=== PATIENT | female | born 1940 | race Caucasian/White ===

== ENCOUNTER 2017-09-19 13:00 | Inpatient (IN) | payer MEDICARE ==
[~2017-09-19] VITALS: Ht 162.6 cm; Wt 94.4 kg
[~2017-09-19 13:00] MED LIST: ALLO100T PO; ASPI1TAB57 PO; METO50TA PO; SIMV40TA PO
[2017-09-21] MEDS ORDERED: LISI-515 PO (13:12)
[2017-09-21] MEDS ORDERED: COEN100T PO (13:12)
[2017-09-21] MEDS ORDERED: ALPH600C PO (13:15)
[2017-09-21] MEDS ORDERED: VITATAB11 PO (13:15)
[2017-09-21] MEDS ORDERED: FISHCAP4 PO (13:15)
[2017-09-21] MEDS ORDERED: MULT-65 PO (13:15)
[2017-09-21] MEDS ORDERED: VITA2000 PO (13:15)
[2017-09-26] MEDS ORDERED: LACTATED RINGER'S 1000 ML IV PRN (10:15)
[2017-09-26] MEDS ORDERED: POVIDONE IODINE 5% (ANTISEPSIS KIT) 4 APPLICATIONS EACH NARE PRN (10:15)
[2017-09-26] MEDS ORDERED: ALVIMOPAN 12 MG CAPSULE - On Call PO SCH (10:15)
[2017-09-26] MEDS ORDERED: METOPROLOL TARTRATE 25 MG TAB PO PRN (10:15)
[2017-09-26] MEDS ORDERED: CHLORHEXIDINE GLUCONATE 2 % 1 PACK (2 CLOTHS) TOPICAL PRN (10:15)
[2017-09-26] MEDS ORDERED: INSULIN HUMAN REGULAR 1,000 UNITS/10 ML VIAL SQ PRN (10:15)
[2017-09-26] MEDS ORDERED: SODIUM CHLORID 0.9% 500 ML IV PRN (10:15)
[2017-09-26] MEDS ORDERED: ACETAMINOPHEN 1000 MG/100 ML 100 ML IV ONE (10:16)
[2017-09-26] MEDS ORDERED: metroNIDAZOLE 500 MG INJ 100 ML IV ONE (10:16)
[2017-09-26] MEDS ORDERED: ceFAZolin 2 GM PREMIX 50 ML ONE (10:16)
[2017-09-26] MEDS ORDERED: metroNIDAZOLE 500 MG INJ 100 ML IV SCH (10:30)
[2017-09-26] MEDS ORDERED: ceFAZolin 2 GM PREMIX 50 ML IV SCH (10:30)
[2017-09-26] MEDS ORDERED: ACETAMINOPHEN 1000 MG/100 ML 100 ML IV SCH (10:30)
[2017-09-26] MEDS ORDERED: BUPIVACAINE/EPINEPHRINE 0.5% PF 10 ML VIAL ONE (11:52)
[2017-09-26] MEDS ORDERED: GLYCOPYRROLATE 1 MG/5 ML SYRINGE IV PUSH ONE (12:00)
[2017-09-26] MEDS ORDERED: NEOSTIGMINE 5 MG/5 ML SYRINGE IV PUSH ONE (12:00)
[2017-09-26] MEDS ORDERED: METOPROLOL TARTRATE 5 MG/5 ML VIAL IV PUSH ONE (12:00)
[2017-09-26] MEDS ORDERED: LACTATED RINGER'S 1000 ML INJ 3,000 ML IV ONE (12:00)
[2017-09-26] MEDS ORDERED: ONDANSETRON HCL 4 MG/2 ML VIAL IV PUSH ONE (12:00)
[2017-09-26] MEDS ORDERED: ePHEDrine/NS 25 MG/5 ML SYRINGE IV ONE (12:00)
[2017-09-26] MEDS ORDERED: LIDOCAINE HCL 1% PF 5 ML SYRINGE OTHER ONE (12:00)
[2017-09-26] MEDS ORDERED: ceFAZolin INJ 1,000 MG VIAL IV ONE ×2 (12:00→17:25)
[2017-09-26] MEDS ORDERED: hydrALAZINE HCL 20 MG/ML VIAL IV ONE (12:00)
[2017-09-26] MEDS ORDERED: DEXAMETHASONE SOD PHOS 4 MG/ML VIAL IV ONE (12:00)
[2017-09-26] MEDS ORDERED: PROPOFOL 200 MG/20 ML AMP IV ONE (12:00)
[2017-09-26] MEDS ORDERED: ROCURONIUM INJ 50 MG/5 ML SYRINGE IV PUSH ONE (12:00)
[2017-09-26] MEDS ORDERED: BUPIVACAINE LIPOSOME PF 1.3% 20 ML VIAL ONE (12:05)
--- NOTE | 2017-09-26 14:42 | GIPROC ---
[facility] [address] [facility]. [facility] [place], [address] COLONOSCOPY PROCEDURE REPORT EXAM DATE: 09/26/2017 PATIENT NAME: Viry Lea MR #: [id number] BIRTHDATE: 1940 ENDOSCOPIST: Omar Feliz MD ORDER #: [id number] FOOD BROKER: Suyapa Staples STATUS: inpatient INDICATIONS: The patient is a 77 yr old female here for a colonoscopy due to colonic adenocarcinoma PROCEDURE PERFORMED: Colonoscopy, diagnostic MEDICATIONS: Per Anesthesia and None. PREP QUALITY: suboptimal ESTIMATED BLOOD LOSS: None CONSENT: The patient understands the risks and benefits of the procedure and understands that these risks include, but are not limited to: sedation, allergic reaction, infection, perforation and/or bleeding. Alternative means of evaluation and treatment include, among others: physical exam, x-rays, and/or surgical intervention. The patient elects to proceed with this endoscopic procedure. medical equipment was checked for proper function. Hand hygiene and appropriate measures for infection prevention was taken. After the risks, benefits and alternatives of the procedure were thoroughly explained, Informed consent was verified, confirmed and timeout was successfully executed by the treatment team. A digital exam revealed internal hemorrhoids The Pentax [id number] and New [id number] (Std Gastro) endoscope was introduced through the anus and advanced to the sigmoid colon. The instrument was then slowly withdrawn as the colon was fully examined. COLON FINDINGS: A sessile polyp measuring 3 cm in size was found in the sigmoid colon. Retroflexed views revealed internal hemorrhoids The scope was then completely withdrawn from the patient and the procedure terminated. ADVERSE EVENTS: There were no complications. IMPRESSIONS: 1. A sessile polyp measuring 3 cm in size was found in the sigmoid colon 2. Retroflexed views revealed internal hemorrhoids 3. Revealed internal hemorrhoids RECOMMENDATIONS: Introp colonoscopy with Dr Wood to locate the polyp RECALL: Return 1 year Colonoscopy Omar Feliz MD eSigned: Omar Feliz MD 09/26/2017 2:41 PM cc:
[2017-09-26] MEDS ORDERED: GLUCAGON 1 MG/ML VIAL ONE (15:53)
[2017-09-26] MEDS ORDERED: ONDANSETRON HCL 4 MG/2 ML VIAL IV PUSH PRN (18:30)
[2017-09-26] MEDS ORDERED: diphenhydrAMINE HCL 50 MG/ML VIAL IV PUSH PRN (18:30)
[2017-09-26] MEDS ORDERED: NALOXONE HCL 0.4 MG/ML AMP IV PUSH PRN ×2 (18:30)
[2017-09-26] MEDS ORDERED: Post-op Orders (for Pharmacy) XX ONE (18:30)
[2017-09-26] MEDS ORDERED: SODIUM CHLORIDE 0.9% FLUSH 10 ML FLUSH IV FLUSH PRN (18:30)
[2017-09-26] MEDS ORDERED: PROPOFOL 1000 MG/100 ML INJ 100 ML ONE (19:03)
[2017-09-26] MEDS ORDERED: SUGAMMADEX SODIUM 200 MG/2 ML VIAL IV PUSH ONE (19:21)
[2017-09-26] MEDS ORDERED: MIDAZOLAM HCL 2 MG/2 ML VIAL ONE (19:22)
[2017-09-26] MEDS ORDERED: DO NOT ADM ANY ANTICOAGULANT DRUGS PRN (19:30)
[2017-09-26 19:46] VITALS: O2SAT 96
[2017-09-26 19:55] VITALS: O2SAT 98
[2017-09-26] MEDS: SODIUM CHLOR 0.9% 1000 ML INJ 1,000 ML IV SCH (20:00)
[2017-09-26] MEDS ORDERED: HYDROmorphone HCL PCA 6 MG/30 ML IV SCH (20:00)
[2017-09-26] MEDS: ACETAMINOPHEN 1000 MG/100 ML 100 ML IV SCH (20:45)
[2017-09-26] MEDS ORDERED: NON-FORMULARY DRUG (Simvastatin 40 MG) PO SCH (21:00)
[2017-09-26] MEDS: PRAVASTATIN SOD 80 MG TAB PO SCH (21:00)
[2017-09-26] MEDS: SODIUM CHLORIDE 0.9% FLUSH 10 ML FLUSH IV FLUSH SCH (21:00)
[2017-09-26] MEDS: metroNIDAZOLE 500 MG INJ 100 ML IV SCH (22:00)
[2017-09-26] MEDS: PCA - TOTAL MG DILAUDID DELIVERED PER SHIFT OTHER SCH (22:00)
[2017-09-27] VITALS: BP 138/90; PULSE 76; RESP 18; O2SAT 98
[2017-09-27] MEDS: ACETAMINOPHEN 1000 MG/100 ML 100 ML IV SCH ×2 (02:07→08:04)
[2017-09-27 04:00] VITALS: BP 123/61; PULSE 76; RESP 18; TEMP 97.5; O2SAT 98
[2017-09-27] MEDS: metroNIDAZOLE 500 MG INJ 100 ML IV SCH ×2 (04:57→14:21)
[2017-09-27] MEDS: PCA - TOTAL MG DILAUDID DELIVERED PER SHIFT OTHER SCH (05:46)
[2017-09-27] MEDS: SODIUM CHLOR 0.9% 1000 ML INJ 1,000 ML IV SCH ×2 (05:46→21:12)
[2017-09-27 08:00] VITALS: BP 105/65; PULSE 76; RESP 17; TEMP 97; O2SAT 98
[2017-09-27] MEDS: LISINOPRIL 20 MG TAB PO SCH (08:05)
[2017-09-27] MEDS: ASPIRIN EC 81 MG TABEC PO SCH (08:05)
[2017-09-27] MEDS: METOPROLOL TARTRATE 50 MG TAB PO SCH (08:05)
[2017-09-27] MEDS: ALLOPURINOL 100 MG TAB PO SCH (08:05)
[2017-09-27] MEDS: ALVIMOPAN 12 MG CAPSULE - Post-op dosing PO SCH ×2 (08:58→20:00)
[2017-09-27] MEDS: SODIUM CHLORIDE 0.9% FLUSH 10 ML FLUSH IV FLUSH SCH ×2 (08:59→20:00)
--- NOTE | 2017-09-27 10:49 | HHI.PR ---
Subjective Subjective Notes No complaints. Objective Vitals/I&O Vital Signs Date Time Temp Pulse Resp B/P (MAP) Pulse Ox O2 Delivery O2 Flow Rate FiO2 09/27/17 08:00 97.0 76 17 105/65 (78) 98 09/27/17 00:34 Nasal Cannula 2.00 09/26/17 19:46 40 Narrative Exam Awake and alert in bed Nonlabored breathing Abd: soft, inc c/d/i, RAIN ss output A/P Assessment and Plan POD 1 s/p robot assisted sigmoid resection. Stable post op. Not using PICK REMOVER. Fulls D/c PICK REMOVER. [place]. D/c richard SCDs, heparin. Hector Wood MD September 27, 2017 10:49
--- NOTE | 2017-09-27 10:51 | HHI.FF ---
Face to Face Verification Diagnosis: (1) S/P colectomy (2) Colon cancer Home Health Nursing Order: Signs/symptoms of disease process Nursing assessment with vital signs Instructions: RAIN drain care I have seen patient Viry Lea on 09/27/17. My clinical findings support the need for the requested home health care services because: Ltd mobility - disease progression Deconditioned w/ increased weakness Limited ability to care for self Need for psychosocial assistance I certify that my clinical findings support that this patient is homebound because: Post-op weakness Need for psychosocial assistance Hector Wood MD September 27, 2017 10:51
[2017-09-27] MEDS ORDERED: ACETAMINOPHEN/HYDROcodone 325 MG/5 MG TAB PO PRN (11:00)
--- NOTE | 2017-09-27 11:03 | PD.OP ---
cc: Aman Phillips MD; Israel,Hector LR; Omar Feliz MD Operative Report Date of Surgery: September 26, 2017 Preoperative Diagnosis: (1) Colon cancer Postoperative Diagnosis: (1) Colon cancer Procedure: Robot-assisted laparoscopic sigmoid colectomy Rigid proctoscopy Anesthesia: General Surgeon: Hector Wood Geotechnician(s): Aguila LAMBERT Operation and Findings: EBL: 100 cc Operative findings: Intraoperative colonoscopy performed by Dr. Feliz revealed large polypoid mass in sigmoid marked by me laparoscopically. Procedure in detail: The patient was taken to the operating room and placed in the supine position and lithotomy with yellow fin stirrups. Gen. endotracheal anesthesia was induced. The abdomen was prepped and draped in usual sterile fashion and a surgical timeout was performed to verify correct patient procedure and site. She was administered appropriate preoperative antibiotics. An 8 mm incision was made in the left upper quadrant and the abdomen was entered directly using the optiview trocar. The abdomen was insufflated to 15 mmHg with CO2 gas which the patient tolerated well. A 12 mm robotic port was placed in the right lower quadrant about 3 cm superior and medial to the ASIS. A 12 mm trocar was placed superior and to the right of the umbilicus. A 5 mm trocar was placed as an expanded duty dental assistant port in the right upper abdomen. In the left lateral abdomen at the level of the periumbilical port and 8 mm robotic trocar was placed. Finally, the left upper quadrant 5 mm port was changed to an 8 mm robotic port. The patient was placed in steep Trendelenburg position and leaned to the left. The small bowel was brought out of the pelvis. At this point Drs. denny a car was called and performed colonoscopy. Please see his dictation. I clamped the descending colon with bowel graspers to attempt to decrease insufflation of the entire colon. The patient had somewhat poor prep and identification of the sigmoid mass took some time. It was identified and marked. Unfortunately the entire colon had become distended. As much intracolonic air was suctioned as possible. There was a serosal tear to the distended cecum. At the end of the case this was oversewn with multiple 3-0 silk sutures. Next the da Deepti robot was docked. The patient had a large amount of intraperitoneal fat in the fatty mesentery. The sigmoidal vessels and the left colic vessel were identified in the fatty tissue on either side divided with cautery. The vessels were divided using the vessel sealer device. The mesentery was taken up to the level of the junction of the descending and sigmoid colon at the site of planned proximal transection. Next attention attention was turned to the rectosigmoid. Mesentery was divided with the vessel sealer and the hook electrocautery. The lateral peritoneal reflection was divided. The mesorectum was divided with the vessel sealer and the area of the rectosigmoid junction was divided using the da Deepti blue load stapler 2 fires. The area of planned proximal transection was pulled down into the pelvis with easily adequate distance and no tension. I scrubbed back into the case. A 4 cm Pfannenstiel incision was then made and the Juan J wound retractor was placed. The colon was brought up through the incision. This was divided using the pursestring device at the distal descending colon. The specimen was opened on the back table and the mass identified in the middle of the specimen. The sizers were used and the 29 EEA stapler was chosen and opened. The anvil was placed in this distal descending colon with a pursestring suture. It was placed back into the abdomen. The robot was re-docked. The rigid sigmoidoscope was placed through the anus to the end of the rectal stump. The 29 EEA stapler was then placed into the rectal stump. The stapler was opened through the rectum just superior to the staple line. The distal descending colon anvil was placed onto the stapler and it was fired. Saline was placed into the pelvis and the sigmoidoscope used to insufflate the rectum. There was a 1 cm opening on the anterior aspect of the staple line. This was closed in 2 layers either using 3-0 silk suture. Another leak test was performed with no leak. This point the da Deepti was undocked. A 19 Yi round Colton drain was placed through the left lateral port and into the pelvis. It was secured with 3-0 nylon. The 212 mm port sites were closed with 0 Vicryl suture using the fascial closure device. The Pfannenstiel incision was closed with running #1 PDS. Skin was closed with 4-0 subcuticular Monocryl as well as Dermabond. The patient tolerated procedure well was extubated and taken to PACU in stable condition. Hector Wood MD September 27, 2017 11:03
[2017-09-27 12:00] VITALS: BP 119/53; PULSE 72; RESP 18; TEMP 97.2; O2SAT 95
[2017-09-27 16:00] VITALS: BP 143/65; PULSE 72; RESP 18; TEMP 98; O2SAT 92
[2017-09-27] MEDS: HEPARIN SODIUM - SQ 10,000 UNITS/ML VIAL SQ SCH (17:01)
[2017-09-27] MEDS: ACETAMINOPHEN/HYDROcodone 325 MG/5 MG TAB PO PRN ×2 (17:01→21:25)
[2017-09-27 20:00] VITALS: BP 128/57; PULSE 66; RESP 16; TEMP 98.5; O2SAT 94
[2017-09-27] MEDS: PRAVASTATIN SOD 80 MG TAB PO SCH (20:00)
[2017-09-28] VITALS: BP 118/58; PULSE 64; RESP 16; TEMP 98.5; O2SAT 95
[2017-09-28] MEDS: ACETAMINOPHEN/HYDROcodone 325 MG/5 MG TAB PO PRN ×2 (01:48→08:53)
[2017-09-28] MEDS: HEPARIN SODIUM - SQ 10,000 UNITS/ML VIAL SQ SCH ×3 (01:48→17:57)
[2017-09-28 08:00] VITALS: BP 118/56; PULSE 61; RESP 16; TEMP 97.8; O2SAT 93
--- NOTE | 2017-09-28 08:40 | HHI.PR ---
Subjective Subjective Notes No complaints and requests going home soon. States she feels normal. Has mild pain at suprapubic incision when she gets up. Some flatus, not much, is belching. Objective Vitals/I&O Vital Signs Date Time Temp Pulse Resp B/P (MAP) Pulse Ox O2 Delivery O2 Flow Rate FiO2 09/28/17 00:00 98.5 64 16 118/58 (78) 95 09/27/17 00:34 Nasal Cannula 2.00 09/26/17 19:46 40 Narrative Exam Awake and alert in bed Nonlabored breathing Abd: soft, inc c/d/i, RAIN ss output A/P Assessment and Plan POD 2 s/p robot assisted sigmoid resection. Doing well. Need improvement in bowel function. Soft diet. [place]. SCDs, heparin. Possible dc home tomorrow with [facility]. Hector Wood MD Sep 28, 2017 08:40
[2017-09-28] MEDS: ALVIMOPAN 12 MG CAPSULE - Post-op dosing PO SCH ×2 (08:52→20:10)
[2017-09-28] MEDS: LISINOPRIL 20 MG TAB PO SCH (08:52)
[2017-09-28] MEDS: ALLOPURINOL 100 MG TAB PO SCH (08:52)
[2017-09-28] MEDS: METOPROLOL TARTRATE 50 MG TAB PO SCH (08:52)
[2017-09-28] MEDS: ASPIRIN EC 81 MG TABEC PO SCH (08:52)
[2017-09-28] MEDS: SODIUM CHLORIDE 0.9% FLUSH 10 ML FLUSH IV FLUSH SCH ×2 (08:55→20:10)
[2017-09-28 12:00] VITALS: BP 126/60; PULSE 56; RESP 16; TEMP 98.1; O2SAT 93
[2017-09-28 16:00] VITALS: BP 122/59; PULSE 61; RESP 16; TEMP 98.7; O2SAT 96
[2017-09-28 20:00] VITALS: BP 125/60; PULSE 68; RESP 18; TEMP 98.3; O2SAT 95
[2017-09-28] MEDS: PRAVASTATIN SOD 80 MG TAB PO SCH (20:10)
[2017-09-29] VITALS: BP 132/63; PULSE 64; RESP 18; TEMP 99.1; O2SAT 93
[2017-09-29] MEDS: HEPARIN SODIUM - SQ 10,000 UNITS/ML VIAL SQ SCH ×2 (01:58→09:11)
[2017-09-29 08:00] VITALS: BP 165/74; PULSE 68; RESP 18; TEMP 98.7; O2SAT 98
--- NOTE | 2017-09-29 08:39 | HHI.DS ---
Discharge Summary Admission Date September 26, 2017 at 09:46 Discharge Date: Sep 29, 2017 Admitting Diagnosis sigmoid colon adenocarcinoma Procedures Robot assisted sigmoid colectomy Intraoperative colonoscopy by Dr. Feliz Brief History 77 yo F who had colonoscopy due to lower GI bleed found to have sigmoid mass on biopsy consistent with adenocarcinoma. After discussion with patient in office she was planned for above procedure. PE at Discharge Awake and alert in bed Nonlabored breathing Abd: soft, inc c/d/i, RAIN ss output Hospital Course Post op she has done very well. Tolerated clears then fulls and soft diet. Has been ambulating in halls. Currently requiring no pain medication at all. RAIN drain is serosanguinous. Pt Condition on Discharge: Good Discharge Disposition: Disch w/ Home Health Serv Discharge Instructions DIET: Follow Instructions for: As Tolerated, No Restrictions Activities you can perform: See Additionl Instruction Other Activity Instructions: Ok to shower. No heavy lifting. Follow up Referrals: Surgical - 3-5 Days with Hector Wood MD Continued Medications: Allopurinol (Allopurinol) 100 Mg Tab 100 MG PO DAILY for Gout, #30 TAB 0 Refills Alpha Lipoic Acid (Alpha Lipoic Acid) 600 Mg Cap 600 MG PO DAILY for Nutritional Supplement, CAP [address] (Aspirin 81) 81 Mg Tabdr 2 TAB PO DAILY, TAB 0 Refills B-Complex Vitamins (Vitamin B Complex) 1 Tab 1 TAB PO DAILY Cholecalciferol (Vitamin D3) 2,000 Unit Cap 4000 UNITS PO DAILY for Nutritional Supplement, #56 CAP 0 Refills Coenzyme Q10 (Ubidecarenone) (Coenzyme Q10 (Ubidecarenone)) 100 Mg Tab 100 MG PO DAILY, #1 BOTTLE Fish Oil-Cholecalciferol (Fish Oil + D3) 1,200-1,000 Mg-Unit Cap 2 CAP PO DAILY for Nutritional Supplement, #30 CAP 0 Refills Lisinopril (Lisinopril) 20 Mg Tab 20 MG PO DAILY, #30 TAB 0 Refills Metoprolol Tartrate (Metoprolol Tartrate) 50 Mg Tab 50 MG PO DAILY, #30 TAB 0 Refills Multiple Vitamin (Multi-Vitamin Daily) 1 Tab Tab 1 TAB PO DAILY for Nutritional Supplement, TAB 0 Refills Simvastatin (Simvastatin) 40 Mg Tab 40 MG PO HS for Cholesterol Management, #30 TAB 0 Refills Hector Wood MD Sep 29, 2017 08:39
[2017-09-29] MEDS: ASPIRIN EC 81 MG TABEC PO SCH (09:00)
[2017-09-29] MEDS: LISINOPRIL 20 MG TAB PO SCH (09:00)
[2017-09-29] MEDS: METOPROLOL TARTRATE 50 MG TAB PO SCH (09:00)
[2017-09-29] MEDS: ALLOPURINOL 100 MG TAB PO SCH (09:00)
[2017-09-29] MEDS: ALVIMOPAN 12 MG CAPSULE - Post-op dosing PO SCH (09:00)
[2017-09-29] MEDS: SODIUM CHLORIDE 0.9% FLUSH 10 ML FLUSH IV FLUSH SCH (09:11)
[2017-09-29 12:00] VITALS: BP 149/68; PULSE 58; RESP 18; TEMP 97.9; O2SAT 97
== END 2017-09-29 14:09 | disposition home health service (06) | DRG 331 ==
LOC: HSDI 09-26 09:46 → N06A 09-26 22:35
PROVIDERS: ADMIT Surgery; ATTEND Surgery
PROC: 0DJD8ZZ Inspection of Lower Intestinal Tract, Via Natural or Artificial Opening Endoscopic (ICD-10-PCS; 2017-09-26)
PROC: 0DTN0ZZ Resection of Sigmoid Colon, Open Approach (ICD-10-PCS; principal; 2017-09-26 13:02)
PROC: 8E0W4CZ Robotic Assisted Procedure of Trunk Region, Percutaneous Endoscopic Approach (ICD-10-PCS; 2017-09-26 13:02)
DX: C18.7 Malignant neoplasm of sigmoid colon (principal); E11.22 Type 2 diabetes mellitus with diabetic chronic kidney disease; E11.42 Type 2 diabetes mellitus with diabetic polyneuropathy; E11.51 Type 2 diabetes mellitus with diabetic peripheral angiopathy without gangrene; Z68.36 Body mass index [BMI] 36.0-36.9, adult; E66.9 Obesity, unspecified; N18.3 Chronic kidney disease, stage 3 (moderate); I12.9 Hypertensive chronic kidney disease with stage 1 through stage 4 chronic kidney disease, or unspecified chronic kidney disease; E78.5 Hyperlipidemia, unspecified; K64.8 Other hemorrhoids; K57.30 Diverticulosis of large intestine without perforation or abscess without bleeding; Z87.891 Personal history of nicotine dependence; Z85.42 Personal history of malignant neoplasm of other parts of uterus; Z79.82 Long term (current) use of aspirin; Z92.3 Personal history of irradiation
CPT/HCPCS: 86850; 86900; 86901; 88307; 88309; 94002; 94150; C9290; J0131; J0360; J0690; J1100; J1170; J1610; J1644; J2250; J2405; J2710; J3010; J7030; J7120